=== PATIENT | female | born 2000 | race Two or more races ===

== ENCOUNTER 2020-06-23 22:18 | Emergency (ER) | payer SELFPAY ==
[~2020-06-23] VITALS: Ht 165.1 cm; Wt 105.1 kg
[2020-06-24 00:17] VITALS: BP 116/60
== END 2020-06-24 00:20 ==
LOC: ED 06-24 00:14
DX: O26.891 Other specified pregnancy related conditions, first trimester (principal); Z3A.01 Less than 8 weeks gestation of pregnancy
CPT/HCPCS: 36415; 84702; 99283

== ENCOUNTER 2021-01-18 13:07 | Outpatient (CLI) | payer MEDICAID ==
[2021-01-18 14:02] VITALS: BP 102/58
[2021-01-18 14:54] LABS: MICROSCOPIC INDICATED
== END 2021-01-18 16:24 | disposition home or self-care (01) ==
LOC: LDOP 13:07
PROVIDERS: ATTEND Obstetrics & Gynecology
DX: O42.913 Preterm premature rupture of membranes, unspecified as to length of time between rupture and onset of labor, third trimester (principal); Z3A.34 34 weeks gestation of pregnancy
CPT/HCPCS: 59025; 81001; 84112

== ENCOUNTER 2021-03-01 14:59 | Inpatient (IN) | payer MEDICAID ==
[~2021-03-01] VITALS: Ht 165.1 cm; Wt 110.0 kg
[2021-03-05] MEDS: LACTATED RINGERS 1,000 ML IV SCH (20:25)
[2021-03-05] MEDS ORDERED: OXYTOCIN 30U/ 0.9% NaCL 500ML 500 ML IV PRN (20:30)
[2021-03-05] MEDS ORDERED: ONDANSETRON 2MG/ML, 2ML IVPush PRN (20:30)
[2021-03-05] MEDS ORDERED: PLEASE ENTER HEIGHT AND WEIGHT MC SCH (20:30)
[2021-03-05] MEDS ORDERED: TERBUTALINE 1 MG/ML, 1ML SQ PRN (20:30)
[2021-03-05] MEDS ORDERED: D5%-LACTATED RINGERS 1,000 ML IV SCH (20:30)
[2021-03-05] MEDS ORDERED: CALCIUM CARBONATE 500 MG TAB.CHEW PO PRN (20:30)
[2021-03-05] MEDS ORDERED: TERBUTALINE 1 MG/ML, 1ML IVPush PRN (20:30)
[2021-03-05] MEDS ORDERED: MISOPROSTOL 25 MCG TABLET VG PRN (20:30)
[2021-03-05] MEDS ORDERED: FENTANYL PF 100 MCG/2ML IV PRN (20:30)
[2021-03-05] MEDS ORDERED: FENTANYL PF 100 MCG/2ML IVPush PRN (20:30)
[2021-03-05] MEDS ORDERED: SODIUM CITRATE/CITRIC ACID 30 ML UDC PO PRN (20:30)
[2021-03-05 20:54] LABS: BASOPHILS % (AUTO) 0 % (0-1); EOSINOPHILS % (AUTO) 0 % (1-7); LYMPHOCYTES % (AUTO) 20 % (22-44); MEAN CORPUSCULAR HGB CONC 32.4 g/dL (32.4-35.8); MEAN PLATELET VOLUME 9.1 fL (7.4-10.4); MONOCYTES % (AUTO) 6 % (2-9); NEUTROPHILS % (AUTO) 73 % (42-75); PLATELET COUNT 234 x10^3/uL (130-400); RED BLOOD COUNT 4.29 x10^6/uL (3.82-5.3); RED CELL DISTRIBUTION WIDTH 17.3 % (9.6-15.2)
[2021-03-05 21:52] LABS: MICROSCOPIC INDICATED
[2021-03-05 22:54] LABS: ALANINE AMINOTRANSFERASE 13 U/L (12-78); ALBUMIN 2.6 g/dL (3.4-5.0); ANION GAP 9 mmol/L (5-15); CALCIUM 8.5 mg/dL (8.5-10.1); CHLORIDE 112 mmol/L (98-107); CREATININE 0.58 mg/dL (0.55-1.02)
[2021-03-05 22:55] LABS: ALKALINE PHOSPHATASE 240 U/L (45-117); BILIRUBIN,TOTAL 0.3 mg/dL (0.2-1.0); TOTAL PROTEIN 6.7 g/dL (6.4-8.2)
[2021-03-06] MEDS ORDERED: BUPIVACAINE 0.25% ONE ×2 (08:16→13:05)
[2021-03-06] MEDS ORDERED: FENTANYL/BUPIV./NS/PF 250 ML EPIDCONT ONE (08:16)
[2021-03-06] MEDS: LACTATED RINGERS 1,000 ML IV SCH ×2 (08:28→18:06)
[2021-03-06] MEDS ORDERED: NALOXONE 0.4 MG/ML, 1ML IVPush PRN ×2 (09:00→11:00)
[2021-03-06] MEDS ORDERED: REMIFENTANIL 3 MG in SODIUM CHLORIDE 0.9% 30 ML IV SCH (09:00)
[2021-03-06 10:53] LABS: MICROSCOPIC INDICATED
[2021-03-06] MEDS ORDERED: LACTATED RINGERS 1,000 ML IVBOLUS PRN (11:00)
[2021-03-06] MEDS ORDERED: ONDANSETRON 2MG/ML, 2ML IVPush PRN (11:00)
[2021-03-06] MEDS ORDERED: EPHEDRINE 50 MG/ML, 1ML IVPush PRN (11:00)
[2021-03-06] MEDS ORDERED: LACTATED RINGERS 1,000 ML IV SCH ×2 (11:00→18:00)
[2021-03-06] MEDS ORDERED: FENTANYL/BUPIV./NS/PF 250 ML EPIDCONT SCH (11:00)
[2021-03-06] MEDS ORDERED: DIPHENHYDRAMINE 50 MG/ML, 1ML IVPush PRN (11:00)
[2021-03-06 11:03] LABS: CREATININE,URINE RANDOM 43.2 mg/dL
[2021-03-06] MEDS ORDERED: MAGNESIUM SULF. PMX 20GM/500ML 500 ML IV ONE (14:28)
[2021-03-06] MEDS ORDERED: MAGNESIUM SULFATE PMX 4GM/100M 100 ML ONE (14:28)
[2021-03-06] MEDS ORDERED: NEWBORN KIT ONE (16:46)
[2021-03-06] MEDS ORDERED: MAGNESIUM SULFATE PMX 4GM/100M 100 ML IVPB ONE (17:00)
[2021-03-06] MEDS ORDERED: SIMETHICONE 80 MG CHEW TAB PO PRN (17:00)
[2021-03-06] MEDS ORDERED: MAGNESIUM HYDROXIDE 8%, 30ML UDC PO PRN (17:00)
[2021-03-06] MEDS ORDERED: ONDANSETRON 2MG/ML, 2ML IV PRN (17:00)
[2021-03-06] MEDS ORDERED: DIPH,PERTUSS(ACELL),TET VAC/PF NC IM-VACC PRN (17:00)
[2021-03-06] MEDS ORDERED: RHOGAM FROM BLOOD BANK 1 NOTE EA IM/IV ONE (17:00)
[2021-03-06] MEDS ORDERED: OXYcodone/APAP 5/325MG TABLET PO PRN ×2 (17:00)
[2021-03-06] MEDS ORDERED: CALCIUM CARBONATE 500 MG TAB.CHEW PO PRN (17:00)
[2021-03-06] MEDS ORDERED: MISOPROSTOL 200 MCG TABLET PR PRN (17:00)
[2021-03-06] MEDS ORDERED: ACETAMINOPHEN 325 MG TABLET PO PRN ×2 (17:00)
[2021-03-06] MEDS: MAGNESIUM SULF. PMX 20GM/500ML 500 ML IV SCH (17:30)
[2021-03-06] MEDS: OXYTOCIN 30U/ 0.9% NaCL 500ML 500 ML IV SCH (17:58)
[2021-03-06] MEDS: IBUPROFEN 600 MG TABLET PO PRN (18:45)
[2021-03-06 19:20] VITALS: BP 146/74
[2021-03-07 01:41] LABS: BASOPHILS % (AUTO) 1 % (0-1); EOSINOPHILS % (AUTO) 0 % (1-7); LYMPHOCYTES % (AUTO) 13 % (22-44); MEAN CORPUSCULAR HEMOGLOBIN 26.2 pg (27.0-34.8); MEAN CORPUSCULAR HGB CONC 32.7 g/dL (32.4-35.8); MEAN PLATELET VOLUME 8.7 fL (7.4-10.4); MONOCYTES % (AUTO) 6 % (2-9); NEUTROPHILS % (AUTO) 81 % (42-75); PLATELET COUNT 175 x10^3/uL (130-400); RED BLOOD COUNT 3.95 x10^6/uL (3.82-5.3); RED CELL DISTRIBUTION WIDTH 17.5 % (9.6-15.2)
[2021-03-07] MEDS: IBUPROFEN 600 MG TABLET PO PRN ×3 (01:42→18:07)
[2021-03-07] MEDS: MAGNESIUM SULF. PMX 20GM/500ML 500 ML IV SCH ×2 (02:23→13:00)
[2021-03-07] MEDS: OXYTOCIN 30U/ 0.9% NaCL 500ML 500 ML IV SCH ×3 (03:00→23:00)
[2021-03-07 07:58] VITALS: BP 133/72
[2021-03-07] MEDS: DOCUSATE 100 MG CAPSULE PO PRN (08:30)
[2021-03-07] MEDS: PRENATAL VIT/IRON/FA 1 EACH TABLET PO SCH (08:30)
[2021-03-07 12:01] VITALS: BP 136/80
[2021-03-07] MEDS: LACTATED RINGERS 1,000 ML IV SCH (14:06)
[2021-03-07 16:17] VITALS: BP 132/89
[2021-03-07 21:00] VITALS: BP 137/91
[2021-03-08] MEDS: IBUPROFEN 600 MG TABLET PO PRN ×2 (00:36→12:29)
[2021-03-08 01:00] VITALS: BP 144/85
[2021-03-08 02:35] VITALS: BP 139/80
[2021-03-08 06:00] VITALS: BP 128/77
[2021-03-08 07:28] VITALS: BP 146/85
[2021-03-08] MEDS: DOCUSATE 100 MG CAPSULE PO PRN (12:29)
[2021-03-08] MEDS: PRENATAL VIT/IRON/FA 1 EACH TABLET PO SCH (12:29)
[2021-03-08 12:32] VITALS: BP 156/88
[2021-03-08] MEDS ORDERED: IBUP-1222 PO (14:43)
[2021-03-08 16:45] VITALS: BP 127/82
== END 2021-03-08 17:00 | disposition home or self-care (01) | DRG 807 ==
LOC: LDIP 03-05 20:07 → 2NE 03-06 18:39 → 2NW 03-07 11:46
PROVIDERS: ADMIT Obstetrics & Gynecology; ATTEND Obstetrics & Gynecology
PROC: 0KQM0ZZ Repair Perineum Muscle, Open Approach (ICD-10-PCS; principal; 2021-03-06)
PROC: 10E0XZZ Delivery of Products of Conception, External Approach (ICD-10-PCS; 2021-03-06)
PROC: 3E0R3BZ Introduction of Anesthetic Agent into Spinal Canal, Percutaneous Approach (ICD-10-PCS; 2021-03-06)
PROC: 00HU33Z Insertion of Infusion Device into Spinal Canal, Percutaneous Approach (ICD-10-PCS; 2021-03-06)
DX: O48.0 Post-term pregnancy (principal); Z37.0 Single live birth; O13.4 Gestational [pregnancy-induced] hypertension without significant proteinuria, complicating childbirth; O12.14 Gestational proteinuria, complicating childbirth; O70.1 Second degree perineal laceration during delivery; Z3A.40 40 weeks gestation of pregnancy
CPT/HCPCS: 36415; J7121; 80053; 81001; 82570; 83735; 84156; 85025; 86592; 86850; 86900; 87086; 87635; G0378; J2405; J3010; J2590; J3475; J7120